=== PATIENT | female | born 1950 | race Caucasian/White ===

== ENCOUNTER 2019-12-02 09:27 | Day surgery (SDC) | payer MEDICARE, MEDICAID, SELFPAY ==
[~2019-12-02] VITALS: Ht 165.1 cm; Wt 67.1 kg
[2019-12-02] MEDS ORDERED: SIMETHICONE 40 MG/0.6 ML ML ONE (10:19)
[2019-12-02] MEDS ORDERED: MEPERIDINE HCL/PF 100 MG/ML AMP ONE (10:19)
[2019-12-02] MEDS ORDERED: GLYCOPYRROLATE 0.2 MG/ML VIAL ONE (10:20)
[2019-12-02] MEDS: MIDAZOLAM HCL 5 MG/5 ML VIAL ONE ×3 (12:00→12:04)
[2019-12-02 12:44] VITALS: BP_SYST 104
== END 2019-12-02 13:23 | disposition home or self-care (01) ==
LOC: SDS 09:27 → SMU 09:28 → SDS 13:23
PROVIDERS: ATTEND Colon & Rectal Surgery
DX: Z12.11 Encounter for screening for malignant neoplasm of colon (principal); Z20.828 Contact with and (suspected) exposure to other viral communicable diseases; K57.30 Diverticulosis of large intestine without perforation or abscess without bleeding; E78.00 Pure hypercholesterolemia, unspecified; M85.80 Other specified disorders of bone density and structure, unspecified site
CPT/HCPCS: 45380; 88307; 99152; G0378; J2175; J2250; J7030; U0003; J3490